=== PATIENT | male | born 1965 | race Caucasian/White ===

== ENCOUNTER 2019-03-29 19:30 | Inpatient (IN) | payer OTHER ==
[~2019-03-29] VITALS: Ht 180.3 cm; Wt 111.6 kg
[2019-03-29] MEDS ORDERED: COPAXONE40 MG/1 ML SUBCUTANEO (20:35)
[2019-03-29] MEDS ORDERED: AMBIEN10 MG PO (20:35)
[2019-03-29] MEDS ORDERED: SEPTRA (20:35)
[2019-03-30] MEDS ORDERED: BACTRIM DS TAB1 EACH (16:37)
[2019-04-12] MEDS ORDERED: CIPRO500 MG PO (14:27)
[2019-04-12] MEDS ORDERED: FLAGYL500MG PO (14:28)
== END 2019-04-12 14:46 | disposition home or self-care (01) | DRG 392 ==
LOC: ER 19:30 → SURG 03-30 13:30 → SURH 04-05 15:04
PROVIDERS: ADMIT Internal Medicine
PROC: 3E0436Z Introduction of Nutritional Substance into Central Vein, Percutaneous Approach (ICD-10-PCS; 2019-03-30)
PROC: 02HV33Z Insertion of Infusion Device into Superior Vena Cava, Percutaneous Approach (ICD-10-PCS; 2019-03-31)
PROC: BW21YZZ Computerized Tomography (CT Scan) of Abdomen and Pelvis using Other Contrast (ICD-10-PCS; 2019-04-05)
PROC: 0T9B30Z Drainage of Bladder with Drainage Device, Percutaneous Approach (ICD-10-PCS; principal; 2019-04-07)
DX: K57.20 Diverticulitis of large intestine with perforation and abscess without bleeding (principal); N32.1 Vesicointestinal fistula; E44.0 Moderate protein-calorie malnutrition; K80.80 Other cholelithiasis without obstruction; N30.80 Other cystitis without hematuria; R31.0 Gross hematuria; G35 Multiple sclerosis; B96.29 Other Escherichia coli [E. coli] as the cause of diseases classified elsewhere; B95.2 Enterococcus as the cause of diseases classified elsewhere; B96.6 Bacteroides fragilis [B. fragilis] as the cause of diseases classified elsewhere

== ENCOUNTER 2019-05-20 12:55 | Inpatient (IN) | payer OTHER ==
[~2019-05-20] VITALS: Ht 180.3 cm; Wt 111.1 kg
[~2019-05-20 12:55] MED LIST: AMBIEN10 MG PO; BACTRIM DS TAB1 EACH; CIPRO500 MG PO; COPAXONE40 MG/1 ML SUBCUTANEO; FLAGYL500MG PO; SEPTRA
== END 2019-06-04 17:53 | disposition home or self-care (01) | DRG 982 ==
LOC: SURG 05-25 12:30 → SURH 06-01 06:00 → O/R 06-01 06:00 → SURG 06-01 10:15 → SURH 06-01 15:02
PROVIDERS: ADMIT Colon & Rectal Surgery
PROC: 0DJD8ZZ Inspection of Lower Intestinal Tract, Via Natural or Artificial Opening Endoscopic (ICD-10-PCS; 2019-06-01)
PROC: 4A033R1 Measurement of Arterial Saturation, Peripheral, Percutaneous Approach (ICD-10-PCS; 2019-06-01)
PROC: 0DTN4ZZ Resection of Sigmoid Colon, Percutaneous Endoscopic Approach (ICD-10-PCS; principal; 2019-06-01 10:15)
DX: N32.1 Vesicointestinal fistula (principal); K57.20 Diverticulitis of large intestine with perforation and abscess without bleeding; D62 Acute posthemorrhagic anemia; E66.09 Other obesity due to excess calories; G47.33 Obstructive sleep apnea (adult) (pediatric)

== ENCOUNTER 2019-09-12 10:07 | Emergency (ER) | payer OTHER ==
[~2019-09-12] VITALS: Ht 180.3 cm; Wt 106.6 kg
== END 2019-09-12 14:34 | disposition home or self-care (01) ==
LOC: ER 10:07
DX: K60.3 Anal fistula (principal); K80.80 Other cholelithiasis without obstruction; Z03.818 Encounter for observation for suspected exposure to other biological agents ruled out

== ENCOUNTER 2019-11-21 17:15 | Emergency (ER) | payer OTHER ==
[~2019-11-21] VITALS: Ht 180.3 cm; Wt 106.6 kg
[2019-11-21] MEDS ORDERED: CELEBREX200MG PO (22:27)
[2019-12-22] MEDS ORDERED: NASAL MIST126 ML (12:37)
== END 2019-11-21 22:45 ==
LOC: ER 17:15
DX: K60.1 Chronic anal fissure (principal); K60.3 Anal fistula; Z20.828 Contact with and (suspected) exposure to other viral communicable diseases

== ENCOUNTER 2019-12-29 05:39 | Day surgery (SDC) | payer OTHER ==
[~2019-12-29 05:39] MED LIST changes: +CELEBREX200MG PO; +NASAL MIST126 ML
== END 2019-12-29 17:45 | disposition home or self-care (01) ==
LOC: CIR.AMB 05:39
PROVIDERS: ATTEND Colon & Rectal Surgery
DX: K60.3 Anal fistula (principal); Z20.828 Contact with and (suspected) exposure to other viral communicable diseases

== ENCOUNTER 2020-05-03 06:52 | Day surgery (SDC) | payer OTHER | END 2020-05-03 13:35 | disposition home or self-care (01) | LOC: CIR.AMB 06:52 | PROVIDERS: ATTEND Colon & Rectal Surgery | DX: K60.3 Anal fistula (principal); Z20.828 Contact with and (suspected) exposure to other viral communicable diseases ==

== ENCOUNTER 2020-07-07 08:09 | Day surgery (SDC) | payer OTHER | END 2020-07-07 15:30 | disposition home or self-care (01) | LOC: AMB-ENDOS 08:09 | PROVIDERS: ATTEND Colon & Rectal Surgery | DX: D12.3 Benign neoplasm of transverse colon (principal); K64.1 Second degree hemorrhoids; Z20.822 Contact with and (suspected) exposure to COVID-19 ==

== ENCOUNTER 2021-04-25 10:59 | Emergency (ER) | payer OTHER ==
[~2021-04-25] VITALS: Ht 180.3 cm; Wt 112.5 kg
[2021-04-25] MEDS ORDERED: COPAXONE40 MG/1 ML (11:22)
[2021-04-25] MEDS ORDERED: LEVSIN/SL0.125 MG SL (16:12)
[2021-04-25] MEDS ORDERED: KETO10TA2 PO (16:12)
== END 2021-04-25 16:25 | disposition home or self-care (01) ==
LOC: ER 10:59
DX: K80.20 Calculus of gallbladder without cholecystitis without obstruction (principal); R10.13 Epigastric pain